=== PATIENT | female | born 1950 | race African-American/Black ===

== ENCOUNTER 2017-12-23 23:08 | Emergency (ER) | payer OTHER ==
--- NOTE | 2017-12-23 23:32 | PDOC ---
History of Present Illness - General History Source: Patient Exam Limitations: No Limitations - History of Present Illness Initial Comments: 12/23/17 23:46 The patient is a 67 year old female with a significant PMH of epilepsy, diabetes , and arthritis who presents to the emergency department for evaluation of dizziness and numbness earlier today. The patient describes her numbness as an intermittent sensation localized to her upper lip and RUE with associated dizziness and lightheadedness. She states she has felt similar numbness in the past associated with the onset of her seizures. She denies numbness at presentation. The patient denies hitting her head or LOC. The patient denies taking any medications for her symptoms. She states she has not followed her epilepsy with a Neurologist for over 5 years and does not take medications for her epilepsy or diabetes. The patient denies any weakness or tingling. The patient denies chest pain, shortness of breath, headache and dizziness. Denies fever, chills, nausea, vomit, diarrhea and constipation. Denies dysuria, frequency, urgency and hematuria. Allergies: NKA Past surgical history: None reported. Social history: No reported cigarette, alcohol, or drug use. PCP: Not on Staff. <Billy Payan - Last Filed: 12/23/17 23:46> <Isabella Lay - Last Filed: 12/24/17 02:05> - General Stated Complaint: NUMBNESS/WEAKNESS Time Seen by Provider: 12/23/17 23:17 tPA Exclusion checklist 3-4.5h - Time Elapsed Date last known well: 12/22/17 - Thrombolytic Therapy Candidate Is patient eligible for thrombolytic therapy: No - Ineligibility reason(s) Reasons No tPA given: See reason(s) noted above (intermittent episodes with rapid resolution) <Isabella Lay - Last Filed: 12/24/17 02:05> NIH Stroke Scale - Last Known Well Date/Time & Onset Date Last Known Well: 12/22/17 - Initial Evaluation Level of consciousness: Alert Ask patient the month and their age: Answers both correctly Ask patient to open & close eyes; make fist and let go: Obeys both correctly Best gaze (horizontal eye movement): Normal Visual field testing: No visual field loss Facial paresis (Show teeth/raise eyebrows/close eyes tight): Normal symmetrical movement Motor Function: Left Arm: Normal Motor Function: Right Arm: Normal (extends arm 90 (or 45) degrees for 10 seconds without drift Motor Function: Left Leg: Normal (extends leg 30 degrees for 5 seconds without drift) Motor Function: Right Leg: Normal (extends leg 30 degrees for 5 seconds without drift) Limb Ataxia: No ataxia Sensory(Use pinprick test arms,legs,trunk,face/side to side): Normal Best language (Describe picture, name items, read sentences): No Aphasia Dysarthria (read several words): Normal articulation Extinction and Inattention: No abnormality - Total Score NIH Stroke Scale Score: 0 <Isabella Lay - Last Filed: 12/24/17 02:05> Past History <Billy Payan - Last Filed: 12/23/17 23:46> <Isabella Lay - Last Filed: 12/24/17 02:05> - Past Medical History Allergies/Adverse Reactions: Allergies Allergy/AdvReac Type Severity Reaction Status Date / Time No Known Allergies Allergy Verified 12/24/17 00:30 Home Medications: Ambulatory Orders Cephalexin Monohydrate [Keflex -] 500 mg PO BID #14 capsule 12/24/17 Hydrochlorothiazide 12.5 mg PO DAILY #14 tablet 12/24/17 Review of Systems - Review of Systems Able to Perform ROS?: Yes Comments:: 12/23/17 23:46 GENERAL/CONSTITUTIONAL: No fever or chills. No weakness. HEAD, EYES, EARS, NOSE AND THROAT: No change in vision. No ear pain or discharge. No sore throat. GASTROINTESTINAL: No nausea, vomiting, diarrhea or constipation. GENITOURINARY: No dysuria, frequency, or change in urination. CARDIOVASCULAR: No chest pain or shortness of breath. RESPIRATORY: No cough, wheezing, or hemoptysis. MUSCULOSKELETAL: No joint or muscle swelling or pain. No neck or back pain. SKIN: No rash NEUROLOGIC: (+) Top lip numbness. (+) RUE numbness. No headache, vertigo, loss of consciousness, or change in strength. ENDOCRINE: No increased thirst. No abnormal weight change. HEMATOLOGIC/LYMPHATIC: No anemia, easy bleeding, or history of blood clots. ALLERGIC/IMMUNOLOGIC: No hives or skin allergy. <Billy Payan - Last Filed: 12/23/17 23:46> *Physical Exam - Vital Signs Last Vital Signs Temp Pulse Resp BP Pulse Ox 98.9 F 93 H 18 172/92 99 12/23/17 23:10 12/23/17 23:10 12/23/17 23:10 12/23/17 23:10 12/23/17 23:10 <Billy Payan - Last Filed: 12/23/17 23:46> Heart Score/ECG Review - ECG Intrepretation Comment:: 12/23/17 23:49 sinus at 75, nl axis, nl interval, t wave inversions III which are nonspecific <Isabella Lay - Last Filed: 12/24/17 02:05> ED Treatment Course - LABORATORY CBC & Chemistry Diagram: 12/24/17 00:20 12/24/17 00:20 <Isabella Lay - Last Filed: 12/24/17 02:05> Medical Decision Making - Medical Decision Making 12/23/17 23:50 67yo female presents via medics from home for eval of intermittent episodes of facial numbness and hand numbness today -all on the R side -currently denies any symptoms -no cp/sob/pruitt -hx of epilepsy and dm - but not on meds -pt arrives hypertensive -currently not on any meds -saw a doc in [place] 3 months ago -pt drove from [place] for her sisters - does admit she stopped freq and got out of the car to walk around -no calf ttp -no weakness -no neck pain -pt currently states she feels better and has no complaints upon arrival 12/24/17 01:25 pt with UTI on labs will start abx 12/24/17 01:[address] without acute findings 12/24/17 01:55 pt states feeling better discussed lab and imaging results. pt states she cannot stay. she has her sisters at 11am this morning. States she feels better. States she wants to sign herself out of the ED. States she will take the antibiotics and upon return to [place] she will find a neurologist. States she is returning to [place] on Wednesday. Discussed risks benefits of signing out AMA. discussed concern for TIA and CVA discussed risks with the uti discussed all reasons to patient should stay in the ED and need for follow up with neurology and her PMD. Discussed that should her symptoms worsen she should immediately reutrn to the ED. discussed increased risk of cva given poss tia today. pt states she still wants to sign out AMA. Note: The patient insists on leaving the emergency dept and is signing out against medical advice. The patient understands the risks and complications that may result from the refusal of medical care and admission which includes and permanent disability. The patient has the mental capacity of understanding the risks of refusing care and is capable of making an informed decision. The patient was instructed to return to the emergency department should she change her mind regarding medical care or should her condition worsen. The patient signed the Against Medical Advice form. <Isabella Lay - Last Filed: 12/24/17 02:05> *DC/Admit/Observation/Transfer - Attestations Scribe Attestion: 12/23/17 23:47 Documentation prepared by Billy Payan, acting as medical/surgery registered nurse for Isabella Lay DO. <Billy Payan - Last Filed: 12/23/17 23:46> - Attestations Physician Attestion: 12/24/17 01:29 I, Dr. Isabella Lay DO, attest that this document has been prepared under my direction and personally reviewed by me in its entirety. I further attest, that it accurately reflects all work, treatment, procedures and medical decision -making performed by me. <Isabella Lay - Last Filed: 12/24/17 02:05> Diagnosis at time of Disposition: UTI (urinary tract infection), Numbness, TIA (transient ischemic attack), Hypertension - Discharge Dispostion Disposition: AGAINST MEDICAL ADVICE Condition at time of disposition: Unchanged/Unknown - Prescriptions Prescriptions: Cephalexin Monohydrate [Keflex -] 500 mg PO BID #14 capsule Hydrochlorothiazide 12.5 mg PO DAILY #14 tablet - Referrals Referrals: Bradly Alvares MD [Staff Physician] - Desmond Junior MD [Staff Physician] - Hipolito Yo MD [Staff Physician] - - Patient Instructions Printed Discharge Instructions: DI for Transient Ischemic Attack, DI for Urinary Tract Infection (UTI), High Blood Pressure Additional Instructions: Please take all medications as prescribed. Please return to the ED with any further concerns or complaints. Please follow up with the neurologist, the farm advisor. Please make an appointment to see your PMD as soon as possible.
[2017-12-23 23:35] VITALS: BMI 22.3
[2017-12-24 00:45] LABS: BASO % 0.5 % (0-2.0); HEMATOCRIT 36.8 % (32.4-45.2); HEMOGLOBIN 12.4 GM/dL (10.7-15.3); LYMPH % 30.4 % (8-40); MCH 29.4 pg (25.7-33.7); MCHC 33.6 g/dl (32.0-36.0); MEAN CELL VOLUME 87.3 fl (80-96); MEAN PLT VOLUME 9.9 fl (7.5-11.1); MONO % 6.5 % (3.8-10.2); NEUT % 61.6 % (42.8-82.8); PLATELET COUNT 238 K/MM3 (134-434); RBC 4.21 M/mm3 (3.60-5.2); RDW 12.5 % (11.6-15.6); WHITE BLOOD COUNT 7.5 K/mm3 (4.0-10.0)
[2017-12-24 00:49] LABS: VENOUS PH 7.34 (7.32-7.42); VENOUS PO2 33.6 mmHg (28-48)
[2017-12-24 00:50] LABS: URINE APPEARANCE CLEAR; URINE BILIRUBIN NEGATIVE (<2.0 mg/dL); URINE COLOR LTYELLOW; URINE GLUCOSE (UA) NEGATIVE (NEGATIVE); URINE KETONE NEGATIVE (NEGATIVE); URINE NITRITE NEGATIVE (NEGATIVE); URINE PROTEIN NEGATIVE (NEGATIVE); URINE UROBILINOGEN NEGATIVE mg/dL (0.2-1.0)
[2017-12-24 00:57] LABS: PROTHROMBIN TIME (PATIENT) 11.3 SEC (9.7-13.0)
[2017-12-24 00:58] LABS: URINE LEUK ESTERASE 3+ (NEGATIVE)
[2017-12-24 01:00] LABS: ACTIVATED PTT 31.3 SECONDS (25.2-36.5)
[2017-12-24 01:06] LABS: ALBUMIN 3.9 g/dl (3.4-5.0); ANION GAP 7 (8-16); BLOOD UREA NITROGEN 25 mg/dL (7-18); CALCIUM 8.8 mg/dL (8.5-10.1); CHLORIDE 106 mmol/L (98-107); CO2 28 mmol/L (21-32); CREATININE 0.7 mg/dL (0.55-1.02); GLUCOSE,RANDOM 112 mg/dL (74-106); LIPASE 130 U/L (73-393); MAGNESIUM 1.9 mg/dL (1.8-2.4); POTASSIUM 3.9 mmol/L (3.5-5.1); SGOT/AST 19 U/L (15-37); SGPT/ALT 32 U/L (12-78); SODIUM 141 mmol/L (136-145)
[2017-12-24 01:10] LABS: ALK PHOS 79 U/L (45-117); BILIRUBIN,TOTAL 0.3 mg/dL (0.2-1.0); TOT PROT 7.7 g/dl (6.4-8.2)
[2017-12-24 01:14] LABS: ACETONE SERUM NEGATIVE (NEGATIVE)
[2017-12-24 01:20] LABS: EPI CELLS RARE /HPF (FEW); URINE HYALINE CAST 1 /lpf; URINE MUCUS RARE
[2017-12-24] MEDS ORDERED: CEPHALEXIN MONOHYDRATE 500 MG CAPSULE (UD) PO ONE (01:25)
[2017-12-24] MEDS ORDERED: HYDROCHLOROTHIAZIDE 12.5 MG CAPSULE (FP) PO ONE (02:02)
[2017-12-24] MEDS ORDERED: ASPIRIN 81 MG CHEWABLE TABLETS PO ONE (02:05)
[2017-12-24] MEDS ORDERED: ASPIRIN 81 MG CHEWABLE TABLETS ONE (02:05)
[2017-12-24] MEDS ORDERED: CEPHALEXIN MONOHYDRATE 500 MG CAPSULE (UD) ONE (02:05)
[2017-12-24] MEDS ORDERED: HYDROCHLOROTHIAZIDE 25 MG TABLET (FP) ONE (02:06)
[2017-12-24 04:35] VITALS: BP 176/76; PULSE 93; TEMP 98.2
--- NOTE | 2017-12-24 09:11 | EKG ---
Test Reason : Blood Pressure : / mmHG Vent. Rate : 075 BPM Atrial Rate : 075 BPM P-R Int : 164 ms QRS Dur : 088 ms QT Int : 404 ms P-R-T Axes : 057 042 015 degrees QTc Int : 451 ms NORMAL SINUS RHYTHM NORMAL ECG NO PREVIOUS ECGS AVAILABLE Confirmed by MARLYN GARNER MD ([id number]) on 12/24/2017 9:11:06 AM Referred By: Confirmed By:MARLYN GARNER MD
== END 2017-12-24 02:28 | disposition left against medical advice (07) ==
LOC: JER 23:08
DX: G45.9 Transient cerebral ischemic attack, unspecified (principal); E11.9 Type 2 diabetes mellitus without complications; M12.9 Arthropathy, unspecified; G40.909 Epilepsy, unspecified, not intractable, without status epilepticus
CPT/HCPCS: 36415; 70450-TC; 71045-TC-FY; 80053; 81003; 81015; 82009; 82550; 82803; 83690; 83735; 83880; 84484; 85025; 85610; 85730; 93005; 93010; 99285-25